=== PATIENT | male | born 1980 | race Caucasian/White ===

== ENCOUNTER → 2020-01-15 | Outpatient (CLI) | payer OTHER ==
[2020-01-15 16:17] LABS: BASO # 0.1 x10^3/uL (0.0-0.2); BASO % 1 % (0-3); EOS # 0.2 x10^3/uL (0.0-0.7); EOS % 2 % (0-3); HEMATOCRIT 42.9 % (39.0-53.0); HEMOGLOBIN 14.7 g/dL (13.0-17.5); LYMPH # 1.6 x10^3/uL (1.0-4.8); LYMPH % 23 % (24-48); MEAN CORPUSCULAR HEMOGLOBIN 32 pg (25-35); MEAN CORPUSCULAR HGB CONC 34 g/dL (31-37); MEAN CORPUSCULAR VOLUME 93 fL (79-100); MONO # 0.8 x10^3/uL (0.0-1.1); MONO % 11 % (0-9); NEUT # 4.3 x10^3/uL (1.8-7.7); NEUT % 63 % (31-73); PLATELET COUNT 241 x10^3/uL (140-400); RED BLOOD COUNT 4.63 x10^6/uL (4.30-5.70); RED CELL DISTRIBUTION WIDTH 13.2 % (11.5-14.5); WHITE BLOOD COUNT 6.9 x10^3/uL (4.0-11.0)
--- NOTE | 2020-01-15 16:19 | EKG ---
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
[2020-01-15 16:34] LABS: ALBUMIN 4.4 g/dL (3.4-5.0); C-REACTIVE PROTEIN 1.3 mg/L (0-3.3); CALCIUM 9.8 mg/dL (8.5-10.1); CREATININE 0.9 mg/dL (0.7-1.3); POTASSIUM 4.1 mmol/L (3.5-5.1)
[2020-01-15 16:46] LABS: PROTHROMBIN TIME PATIENT 12.3 SEC (11.7-14.0)
--- NOTE | 2020-01-15 16:47 | RAD ---
AP and Lateral Views of the Chest 01/15/2020 4:31 PM Indication: Reason: pre surgical / Spl. Instructions: / History: Comparison: None Findings: There is no focal consolidation or infiltrate identified. The cardiomediastinal silhouette is within normal limits. There is no evidence of pneumothorax or pleural effusion. No acute osseous abnormalities are identified. Impression: No evidence of acute cardiopulmonary process. Electronically signed by: Jose Angel Couch MD (01/15/2020 4:43 PM) [id number]
[2020-01-16 01:08] LABS: HEMOGLOBIN A1C 5.3 % (4.8-5.6)
== END ==
LOC: SURGPAT 15:26
PROVIDERS: ATTEND Orthopaedic Surgery
DX: Z01.812 Encounter for preprocedural laboratory examination (principal); M16.0 Bilateral primary osteoarthritis of hip; Z96.641 Presence of right artificial hip joint
CPT/HCPCS: 36415; 71046; 80048; 82040; 82306; 83036; 85025; 85610; 85730; 86140; 87641; 93005

== ENCOUNTER → 2020-02-01 | Outpatient (CLI) | payer OTHER | LOC: LAB 11:13 | PROVIDERS: ATTEND Orthopaedic Surgery | DX: Z01.812 Encounter for preprocedural laboratory examination (principal); Z20.828 Contact with and (suspected) exposure to other viral communicable diseases | CPT/HCPCS: U0003 ==

== ENCOUNTER 2020-02-03 20:46 | Emergency (ER) | payer OTHER ==
[~2020-02-03] VITALS: Ht 177.8 cm; Wt 86.0 kg
[2020-02-03] MEDS ORDERED: IV NORMAL SALINE 1000ML BAG 1,000 ML IV ONE (21:15)
[2020-02-03] MEDS ORDERED: NITROGLYCERIN SUBLINGUAL 0.4 MG BOTTLE OF 25. SL PRN (21:15)
[2020-02-03] MEDS ORDERED: ASPIRIN 325 MG TABLET PO ONE (21:15)
[2020-02-03] MEDS ORDERED: MORPHINE SULFATE 4 MG/ML VIAL. IV/SQ PRN (21:15)
--- NOTE | 2020-02-03 21:32 | RAD ---
Exam: Chest one view INDICATION: Chest pain TECHNIQUE: Frontal view of the chest Comparisons: 01/15/2020 FINDINGS: The cardiomediastinal silhouette and pulmonary vessels are within normal limits. The lung and pleural spaces are clear. IMPRESSION: No acute cardiopulmonary process. Electronically signed by: Brandon Delatorre MD (02/03/2020 9:30 PM) ELEAZAR
[2020-02-03 21:40] LABS: BASO % 1 % (0-3); EOS # 0.1 x10^3/uL (0.0-0.7); EOS % 2 % (0-3); HEMATOCRIT 41.8 % (39.0-53.0); HEMOGLOBIN 14.1 g/dL (13.0-17.5); LYMPH # 1.3 x10^3/uL (1.0-4.8); LYMPH % 21 % (24-48); MEAN CORPUSCULAR HEMOGLOBIN 31 pg (25-35); MEAN CORPUSCULAR HGB CONC 34 g/dL (31-37); MEAN CORPUSCULAR VOLUME 92 fL (79-100); MONO # 0.6 x10^3/uL (0.0-1.1); MONO % 10 % (0-9); NEUT # 4.3 x10^3/uL (1.8-7.7); NEUT % 67 % (31-73); PLATELET COUNT 229 x10^3/uL (140-400); RED BLOOD COUNT 4.55 x10^6/uL (4.30-5.70); RED CELL DISTRIBUTION WIDTH 13.1 % (11.5-14.5); WHITE BLOOD COUNT 6.5 x10^3/uL (4.0-11.0)
[2020-02-03 21:47] LABS: CREATININE 0.9 mg/dL (0.7-1.3); POTASSIUM 3.8 mmol/L (3.5-5.1)
[2020-02-03 22:00] LABS: ALBUMIN 4.2 g/dL (3.4-5.0); ALBUMIN/GLOBULIN RATIO 1.2 (1.0-1.7); MAGNESIUM 2.4 mg/dL (1.8-2.4); TOTAL BILIRUBIN 0.5 mg/dL (0.2-1.0); TOTAL PROTEIN 7.7 g/dL (6.4-8.2)
--- NOTE | 2020-02-03 22:09 | PHYS DOC ---
Past Medical History Past Medical History: Other Additional Past Medical Histor: ARTHRITIS IN HIS HIP Past Surgical History: No Surgical History Smoking Status: Never Smoker Alcohol Use: Occasionally General Adult EDM: Chief Complaint: CHEST PAIN-CARDIAC NATURE HPI: HPI: Patient is a 39 year old male with no significant medical history who presents to the ED today complaining of 4 out of 10 left sided chest pain that has been going on and off since yesterday. Patient denies any pain right now in the ED. Patient denies anything specifically exacerbating the pain but states laying on his back relieves the pain. He states he has not taken anything specifically for his symptoms. He states he is supposed to have left hip replacement on Tuesday and has been anxious about this. Review of Systems: Review of Systems: Constitutional: Denies fever or chills. [] Eyes: Denies change in visual acuity. [] HENT: Denies nasal congestion or sore throat. [] Respiratory: Denies cough or shortness of breath. [] Cardiovascular: Reports left-sided chest pain GI: Denies abdominal pain, nausea, vomiting, bloody stools or diarrhea. [] : Denies dysuria. [] Musculoskeletal: Denies back pain or joint pain. [] Integument: Denies rash. [] Neurologic: Denies headache, focal weakness or sensory changes. [] Psychiatric: Denies depression or anxiety. [] Heart Score: HEART Score for Chest Pain: HEART Score for Chest Pain Response (Comments) Value History Slighlty/Non-Suspicious 0 ECG Normal 0 Age < 45 0 Risk Factors No Risk Factors 0 Troponin < Normal Limit 0 Total 0 Risk Factors: Risk Factors: DM, Current or recent (<one month) smoker, HTN, HLP, family history of CAD, obesity. Risk Scores: Score 0 - 3: 2.5% MACE over next 6 weeks - Discharge Home Score 4 - 6: 20.3% MACE over next 6 weeks - Admit for Clinical Observation Score 7 - 10: 72.7% MACE over next 6 weeks - Early Invasive Strategies Current Medications: Current Medications Medications (Trade) Dose Ordered Sig/Rafael Start Time Stop Time Status Last Admin Dose Admin Aspirin (Kavya Aspirin) 325 mg 1X ONCE 02/03/20 21:15 02/03/20 21:16 DC 02/03/20 21:19 325 MG Morphine Sulfate (Morphine Sulfate) 4 mg PRN Q15MIN PRN 02/03/20 21:15 02/04/20 21:14 02/03/20 21:26 4 MG Nitroglycerin (Nitrostat) 0.4 mg PRN Q5MIN PRN 02/03/20 21:15 02/04/20 21:14 02/03/20 21:19 0.4 MG Sodium Chloride 1,000 ml @ 1,000 mls/hr 1X ONCE 02/03/20 21:15 02/03/20 22:14 02/03/20 21:26 1,000 MLS/HR Allergies: Allergies: Allergies Coded Allergies Type Severity Reaction Last Updated Verified I S O L A T I O N *CONTACT* Allergy Unknown 01/18/20 Yes No Known Medication Allergies Allergy Unknown 01/18/20 Yes Physical Exam: PE: Constitutional: Well developed, well nourished, no acute distress, non-toxic appearance. [] HENT: Normocephalic, atraumatic, bilateral external ears normal, oropharynx moist, no oral exudates, nose normal. [] Eyes: PERRLA, EOMI, conjunctiva normal, no discharge. [] Neck: Normal range of motion, no tenderness, supple, no stridor. [] Cardiovascular:Heart rate regular rhythm, no murmur [] Lungs & Thorax: Bilateral breath sounds clear to auscultation [] Abdomen: Bowel sounds normal, soft, no tenderness, no masses, no pulsatile masses. [] Skin: Warm, dry, no erythema, no rash. [] Back: No tenderness, no CVA tenderness. [] Extremities: No tenderness, no cyanosis, no clubbing, ROM intact, no edema. [] Neurologic: Alert and oriented X 3, normal motor function, normal sensory function, no focal deficits noted. [] Psychologic: Affect normal, judgement normal, mood normal. [] Current Patient Data: Labs: Laboratory Tests Test 02/03/20 21:25 White Blood Count 6.5 x10^3/uL (4.0-11.0) Red Blood Count 4.55 x10^6/uL (4.30-5.70) Hemoglobin 14.1 g/dL (13.0-17.5) Hematocrit 41.8 % (39.0-53.0) Mean Corpuscular Volume 92 fL (79-100) Mean Corpuscular Hemoglobin 31 pg (25-35) Mean Corpuscular Hemoglobin Concent 34 g/dL (31-37) Red Cell Distribution Width 13.1 % (11.5-14.5) Platelet Count 229 x10^3/uL (140-400) Neutrophils (%) (Auto) 67 % (31-73) Lymphocytes (%) (Auto) 21 % (24-48) L Monocytes (%) (Auto) 10 % (0-9) H Eosinophils (%) (Auto) 2 % (0-3) Basophils (%) (Auto) 1 % (0-3) Neutrophils # (Auto) 4.3 x10^3/uL (1.8-7.7) Lymphocytes # (Auto) 1.3 x10^3/uL (1.0-4.8) Monocytes # (Auto) 0.6 x10^3/uL (0.0-1.1) Eosinophils # (Auto) 0.1 x10^3/uL (0.0-0.7) Basophils # (Auto) 0.0 x10^3/uL (0.0-0.2) Sodium Level 140 mmol/L (136-145) Potassium Level 3.8 mmol/L (3.5-5.1) Chloride Level 100 mmol/L (98-107) Carbon Dioxide Level 25 mmol/L (21-32) Anion Gap 15 (6-14) H Blood Urea Nitrogen 10 mg/dL (8-26) Creatinine 0.9 mg/dL (0.7-1.3) Estimated GFR (Cockcroft-Gault) 95.0 BUN/Creatinine Ratio 11 (6-20) Glucose Level 92 mg/dL (70-99) Calcium Level 9.0 mg/dL (8.5-10.1) Magnesium Level 2.4 mg/dL (1.8-2.4) Total Bilirubin 0.5 mg/dL (0.2-1.0) Aspartate Amino Transferase (AST) 71 U/L (15-37) H Alanine Aminotransferase (ALT) 120 U/L (16-63) H Alkaline Phosphatase 84 U/L (46-116) Troponin I Quantitative < 0.017 ng/mL (0.000-0.055) Total Protein 7.7 g/dL (6.4-8.2) Albumin 4.2 g/dL (3.4-5.0) Albumin/Globulin Ratio 1.2 (1.0-1.7) Laboratory Tests 02/03/20 21:25 Laboratory Tests 02/03/20 21:25 Vital Signs: Vital Signs Date Time Temp Pulse Resp B/P (MAP) Pulse Ox O2 Delivery O2 Flow Rate FiO2 02/03/20 21:26 20 96 Room Air 02/03/20 21:19 94 137/88 02/03/20 20:50 98.4 98.4 EKG: EK interpreted by Dr. Ferguson sinus rhythm heart rate 91 no STEMI [] Radiology/Procedures: Radiology/Procedures: []PROCEDURE: PORTABLE CHEST 1V Exam: Chest one view INDICATION: Chest pain TECHNIQUE: Frontal view of the chest Comparisons: 01/15/2020 FINDINGS: The cardiomediastinal silhouette and pulmonary vessels are within normal limits. The lung and pleural spaces are clear. IMPRESSION: No acute cardiopulmonary process. Electronically signed by: Brandon Li MD (02/03/2020 9:30 PM) [facility] DICTATED and SIGNED BY: BRANDON LI MD DATE: 02/03/207764CIZ7 0 Course & Med Decision Making: Course & Med Decision Making Pertinent Labs and Imaging studies reviewed. (See chart for details) This is a 39-year-old male patient presenting to the ED today complaining of left-sided chest pain on and off since yesterday. No pain in the ED right now. Patient reports being anxious about left hip replacement that he is supposed to be done on Tuesday. Vitals are stable. EKG is negative, heart score is 0. CBC, CMP with no acute findings, D dimer is normal Chest x-ray is negative. Troponin is normal. Patient was discharged to home. Follow-up with cardiology as well as PCP in the course of this week. Provided return precautions and discharged in stable cond ition. [place] Disclaimer: Juliette Disclaimer: This electronic medical record was generated, in whole or in part, using a voice recognition dictation system. Departure Departure Impression: Primary Impression: Chest pain Qualified Codes: R07.9 - Chest pain, unspecified Disposition: 01 DC HOME SELF CARE/HOMELESS Condition: STABLE Referrals: UNKNOWN PCP NAME (PCP) GERONIMO RODRIGUEZ MD Follow-up in the course of this week Patient Instructions: Chest Pain (Nonspecific)-Brief Additional Instructions: You were evaluated in the emergency room for chest pain, your cardiac work-up is negative. Please follow-up with your primary care doctor as well as a cardio logist provided in the course of this week. You can take ucdu-naz-vogbfhv pain relievers specifically aspirin as needed for pain. Come back to the ED at any point symptoms worsen. KENISHA CARDOZO DIRECTOR PHARMACEUTICAL Feb 03, 2020 22:09
[2020-02-03 22:35] VITALS: BP 125/79
--- NOTE | 2020-02-04 14:59 | EKG ---
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
== END 2020-02-03 22:56 | disposition home or self-care (01) ==
LOC: ER 20:46
DX: R07.89 Other chest pain (principal); M19.90 Unspecified osteoarthritis, unspecified site; Z88.8 Allergy status to other drugs, medicaments and biological substances
CPT/HCPCS: 71045; 80053; 83735; 83880; 84443; 84484; 85025; 85379; 93005; 96361; 96374; 99285; J2270; J7030

== ENCOUNTER → 2020-04-25 | Outpatient (CLI) | payer OTHER ==
[2020-04-25 14:41] LABS: BASO % 1 % (0-3); EOS # 0.2 x10^3/uL (0.0-0.7); EOS % 2 % (0-3); HEMATOCRIT 42.1 % (39.0-53.0); HEMOGLOBIN 14.4 g/dL (13.0-17.5); LYMPH # 1.5 x10^3/uL (1.0-4.8); LYMPH % 21 % (24-48); MEAN CORPUSCULAR HEMOGLOBIN 31 pg (25-35); MEAN CORPUSCULAR HGB CONC 34 g/dL (31-37); MEAN CORPUSCULAR VOLUME 92 fL (79-100); MONO # 0.5 x10^3/uL (0.0-1.1); MONO % 8 % (0-9); NEUT # 4.7 x10^3/uL (1.8-7.7); NEUT % 68 % (31-73); PLATELET COUNT 213 x10^3/uL (140-400); RED BLOOD COUNT 4.59 x10^6/uL (4.30-5.70); RED CELL DISTRIBUTION WIDTH 12.6 % (11.5-14.5); WHITE BLOOD COUNT 6.9 x10^3/uL (4.0-11.0)
[2020-04-25 14:51] LABS: ALBUMIN 4.2 g/dL (3.4-5.0); ANION GAP 9 (6-14); BLOOD UREA NITROGEN 7 mg/dL (8-26); C-REACTIVE PROTEIN < 0.5 mg/L (0-3.3); CALCIUM 8.7 mg/dL (8.5-10.1); CARBON DIOXIDE 29 mmol/L (21-32); CHLORIDE 103 mmol/L (98-107); CREATININE 1.1 mg/dL (0.7-1.3); GFR 74.9; GLUCOSE 93 mg/dL (70-99); POTASSIUM 4.2 mmol/L (3.5-5.1); SODIUM 141 mmol/L (136-145)
[2020-04-25 14:55] LABS: PROTHROMBIN TIME PATIENT 12.5 SEC (11.7-14.0)
== END ==
LOC: EDSTATUS 13:30 → SURGPAT 13:40
PROVIDERS: ATTEND Orthopaedic Surgery
DX: Z01.818 Encounter for other preprocedural examination (principal); M16.11 Unilateral primary osteoarthritis, right hip
CPT/HCPCS: 36415; 80048; 82040; 82306; 85025; 85610; 85730; 86140; 87641

== ENCOUNTER → 2020-05-02 | Outpatient (CLI) | payer OTHER ==
[~2020-05-02] MED LIST: BACI1PAC4 NAS; MELO7.5T29 PO; WARF1TAB69 PO
== END ==
LOC: LAB 12:58
PROVIDERS: ATTEND Orthopaedic Surgery
DX: Z01.812 Encounter for preprocedural laboratory examination (principal); M16.11 Unilateral primary osteoarthritis, right hip; Z20.822 Contact with and (suspected) exposure to COVID-19
CPT/HCPCS: U0003

== ENCOUNTER 2020-05-06 07:55 | Observation (INO) | payer OTHER ==
[~2020-05-06] VITALS: Ht 167.6 cm; Wt 76.2 kg
[~2020-05-06 07:55] MED LIST changes: -BACI1PAC4 NAS; +GABAPENTIN 300 MG CAPSULE. PO PRN; +HYDROmorphone 2 MG/ML VIAL IVP PRN; +IV RINGERS,LACTATED 1000ML 1,000 ML IV SCH; -MELO7.5T29 PO; +MELOXICAM 7.5 MG TABLET PO PRN; +MORPHINE SULFATE 2 MG/ML VIAL. IVP PRN; +MORPHINE SULFATE 5 MG, KETOROLAC 30MG VIAL 30 MG, ROPIVacaine 0.5% PF 60 ML, EPINEPHrin... INT ART ONE; +PROCHLORPERAZINE 10 MG/2 ML VIAL. IVP PRN; +TRANEXAMIC ACID 1,000 MG in IV NS 50ML -- 1ST BAG INJ ONE; +VANCOMYCIN 1GM IVPB FOR OMNI 250 ML IV PRN; -WARF1TAB69 PO; +fentaNYL PF VIAL 100 MCG/2 ML VIAL IVP PRN
[2020-05-06] MEDS ORDERED: TRANEXAMIC ACID 1,000 MG in IV NS 50ML -- 2ND BAG INJ ONE (08:00)
[2020-05-06] MEDS ORDERED: MELO7.5T29 PO (08:07)
[2020-05-06] MEDS ORDERED: WARF1TAB69 PO (08:07)
[2020-05-06] MEDS ORDERED: LIDOCAINE 2% PF 5 ML VIAL. ONE (08:13)
[2020-05-06] MEDS ORDERED: DEXAMETHASONE SOD PHOS 4 MG/ML VIAL ONE (08:13)
[2020-05-06] MEDS ORDERED: PROPOFOL 10 MG/ML (20ML) VIAL. IV ONE (08:13)
[2020-05-06] MEDS ORDERED: ONDANSETRON PF 4 MG/2 ML VIAL. ONE (08:13)
[2020-05-06] MEDS ORDERED: ACETAMINOPHEN 500 MG TABLET PO ONE ×2 (08:16→08:30)
[2020-05-06] MEDS ORDERED: CALCIUM CARBONATE 500 MG TAB.CHEW PO PRN (08:45)
[2020-05-06] MEDS ORDERED: diphenhydrAMINE 50 MG/ML VIAL IVP PRN (08:45)
[2020-05-06] MEDS ORDERED: fentaNYL PF VIAL 100 MCG/2 ML VIAL IVP PRN (08:45)
[2020-05-06] MEDS ORDERED: DEXTROSE 50% 25 GM / 50ML DISP.SYRIN. IV PRN (08:45)
[2020-05-06] MEDS ORDERED: 0.9 % SODIUM CHLORIDE 10 ML DISP.SYRIN. IV PRN (08:45)
[2020-05-06] MEDS: IV NORMAL SALINE 1000ML BAG 1,000 ML IV SCH ×2 (08:45→18:17)
[2020-05-06] MEDS ORDERED: PROCHLORPERAZINE 5 MG TABLET. PO PRN (08:45)
[2020-05-06 08:49] LABS: BASO % 1 % (0-3); EOS # 0.2 x10^3/uL (0.0-0.7); EOS % 3 % (0-3); HEMATOCRIT 46.5 % (39.0-53.0); HEMOGLOBIN 15.7 g/dL (13.0-17.5); LYMPH % 29 % (24-48); MEAN CORPUSCULAR HEMOGLOBIN 31 pg (25-35); MEAN CORPUSCULAR HGB CONC 34 g/dL (31-37); MEAN CORPUSCULAR VOLUME 92 fL (79-100); MONO # 0.7 x10^3/uL (0.0-1.1); MONO % 11 % (0-9); NEUT # 3.9 x10^3/uL (1.8-7.7); NEUT % 57 % (31-73); PLATELET COUNT 227 x10^3/uL (140-400); RED BLOOD COUNT 5.04 x10^6/uL (4.30-5.70); RED CELL DISTRIBUTION WIDTH 12.8 % (11.5-14.5); WHITE BLOOD COUNT 6.8 x10^3/uL (4.0-11.0)
[2020-05-06 08:58] LABS: PROTHROMBIN TIME PATIENT 12.9 SEC (11.7-14.0)
[2020-05-06] MEDS: SENNOSIDES/DOCUSATE 8.6/50MG TABLET. PO SCH (09:00)
[2020-05-06] MEDS: MULTIVITAMIN with MINERAL TABLET. PO SCH (09:00)
[2020-05-06] MEDS ORDERED: BACI1PAC4 NAS (09:04)
[2020-05-06] MEDS ORDERED: MIDAZOLAM HCL/PF 2 MG/2 ML VIAL. ONE (09:37)
[2020-05-06] MEDS ORDERED: ROCURONIUM 50 MG/5 ML VIAL. ONE ×2 (09:37→10:40)
[2020-05-06] MEDS ORDERED: fentaNYL PF VIAL 250 MCG/5 ML VIAL ONE (09:39)
[2020-05-06] MEDS ORDERED: KETAMINE HCL IN NACL, ISO-OSM 50 MG/5 ML SYRINGE ONE (10:19)
[2020-05-06] MEDS ORDERED: TRANEXAMIC ACID in NS IVPB 100 ML ONE (10:26)
[2020-05-06] MEDS ORDERED: VANCOMYCIN 1 GM VIAL. ONE (10:28)
[2020-05-06] MEDS ORDERED: HYDROmorphone 2 MG/ML VIAL ONE (10:32)
[2020-05-06] MEDS: ONDANSETRON ODT 4 MG TAB.RAPDIS. PO SCH ×2 (12:00→18:00)
[2020-05-06] MEDS: ONDANSETRON PF 4 MG/2 ML VIAL. IVP SCH ×2 (12:00→18:04)
[2020-05-06] MEDS ORDERED: NEOSTIGMINE METHYLSULFATE 5 MG/5 ML SYRINGE. ONE (12:09)
[2020-05-06] MEDS ORDERED: GLYCOPYRROLATE 1 MG/5 ML VIAL. ONE (12:09)
[2020-05-06] MEDS ORDERED: fentaNYL PF VIAL 100 MCG/2 ML VIAL ONE (13:02)
[2020-05-06] MEDS: fentaNYL PF VIAL 100 MCG/2 ML VIAL IVP PRN ×2 (13:06→13:15)
--- NOTE | 2020-05-06 13:35 | NUR ---
Arrived to unit by bed from PACU. Drowsy but awakens when spoken to. Dressing, FRANK, is d/i. Wiggles toes and pedal pulses + bilaterally. IVF's intact and infusing. JF's and SCD's on bilaterally. Side rails up x's 2 with call light in reach. at bedside. Cont. monitor.
[2020-05-06 15:00] VITALS: BP 124/82
[2020-05-06] MEDS: MORPHINE SULFATE 2 MG/ML VIAL. IVP PRN ×2 (15:14→19:36)
[2020-05-06] MEDS ORDERED: WARFARIN 7.5 MG TABLET. PO ONE (16:00)
--- NOTE | 2020-05-06 16:07 | PDOC4 ---
Operative Note Operative Note Date of surgery: 05/06/2020 Preoperative diagnosis: Degenerative joint disease right hip Postoperative diagnosis: Same Operative procedure: Right total hip arthroplasty with anterior approach Surgeon Toro Junior Oracle Dba: Davion gee Anesthesia: General Estimated blood loss: 250 cc Complications: None Drains: None Operative indications: Please see my orthopedic clinic note and dictated history and physical for detailed operative indications and note that we covered risks benefits postoperative course of the procedure. All his questions were answered and he wishes to proceed with surgical evaluation and treatment having given informed consent Operative text: Patient was identified procedure verified patient placed in the supine position on the [place] fracture table after adequate amounts of general anesthesia were administered. All bony prominences were well-padded and right hip was prepped and draped in the standard sterile fashion. After timeout was performed patient procedure identified and verified an incision was made just distal to the anterior superior iliac spine running along the tensor fascia shankar for a distance of about 4 inches. Fascia was incised tensor fascia shankar was taken laterally and circumflex vessels were located and coagulated and the anterior capsule was exposed with the rectus femoris gently retracted medially along with the underlying fascia that was dissected free. Capsule was split in a T-shaped incision and preserved and further superior release was carried out with the hip in external rotation. Hip was returned to 40 degrees external rotation and a napkin ring cut was made with an [employer] [place] broach for reference napkin ring was removed and femoral head was removed and sized. Reaming was carried out from a size 53 to a size 55 with a size 56 cluster hole cup placed in proper version and alignment under fluoroscopic guidance and achieved a very solid scratch fit and therefore no screw fixation was applied. A 36 mm vitamin E liner was impacted into place. Femur was brought into maximum external rotation extension and adduction and release was carried out at the 11 o'clock position to free up the femur and retractors were placed medially and above the greater trochanter for maximum femoral exposure box osteotome was used along with the rattail rasp and successive size broaching up to a size 3 which provided excellent stability and fit within the canal. Calcar reaming was carried out and trial fitting with a +0 36 mm head with a high offset neck to reproduce leg length and offset appropriately. This was verified under fluoro scopic guidance. Trial components were removed and a size 3 high offset collared Avenir stem was impacted into place with a +0 ceramic 36 mm head. Excellent stability and range of motion were noted and leg length reproduced according to measurements from the contralateral side. Thorough irrigation carried out with dilute Betadine solution and then washed further with normal saline solution and pulse lavage. Intra-articular mixture was injected subperiosteally throughout the joint capsule and subcutaneous areas. Fascia was closed with #1 PDS strata fix suture in a running fashion subcutaneous closure with buried Vicryl skin closure with subcuticular Monocryl and a aaron dressing was applied. Patient was returned to recovery room in stable condition having tolerated the procedure well. Davion gee was present for the procedure and assisted in the patient positioning prepping draping retraction closure and dressings MARCO A MALAVE MD May 06, 2020 16:07
[2020-05-06] MEDS: FERROUS SULFATE 325 MG TABLET. PO SCH (16:28)
[2020-05-06] MEDS: oxyCODONE IR 5 MG TABLET PO PRN ×2 (16:43→23:24)
[2020-05-06] MEDS: ceFAZolin SODIUM IV Push 1 GM VIAL. IVP SCH ×2 (16:43→22:23)
[2020-05-06 19:00] VITALS: BP 112/73
[2020-05-06] MEDS: ZOLPIDEM 5 MG TABLET. PO PRN ×2 (21:14→23:24)
[2020-05-06 23:00] VITALS: BP 103/67
[2020-05-07] MEDS: MORPHINE SULFATE 2 MG/ML VIAL. IVP PRN (02:45)
[2020-05-07 03:00] VITALS: BP 102/56
--- NOTE | 2020-05-07 03:37 | NUR ---
Voided 100cc per urinal. Refused assistance to ambulate to toilet, "I don't need to go." Bladder scan shows 0cc. Encouraged pt to increase water intake. Refused to turn in bed.
[2020-05-07] MEDS: ceFAZolin SODIUM IV Push 1 GM VIAL. IVP SCH (05:04)
[2020-05-07 05:25] LABS: PROTHROMBIN TIME PATIENT 14.7 SEC (11.7-14.0)
[2020-05-07] MEDS: GABAPENTIN 100 MG CAPSULE. PO SCH ×2 (06:00→12:45)
[2020-05-07] MEDS ORDERED: MAGNESIUM HYDROXIDE 2,400 MG/30 ML ORAL.SUSP. PO PRN (06:00)
[2020-05-07] MEDS: ONDANSETRON PF 4 MG/2 ML VIAL. IVP SCH ×2 (06:00)
[2020-05-07] MEDS: ONDANSETRON ODT 4 MG TAB.RAPDIS. PO SCH ×2 (06:00)
[2020-05-07] MEDS: traMADol 50 MG TABLET PO SCH ×2 (06:09→11:16)
[2020-05-07 07:15] VITALS: BP 101/56
[2020-05-07] MEDS: MULTIVITAMIN with MINERAL TABLET. PO SCH (07:56)
[2020-05-07] MEDS: oxyCODONE IR 5 MG TABLET PO PRN ×2 (07:56→12:50)
[2020-05-07] MEDS: ACETAMINOPHEN 500 MG TABLET PO SCH ×2 (07:56→14:00)
[2020-05-07] MEDS: FERROUS SULFATE 325 MG TABLET. PO SCH (07:57)
[2020-05-07] MEDS: SENNOSIDES/DOCUSATE 8.6/50MG TABLET. PO SCH (07:57)
[2020-05-07] MEDS ORDERED: MELOXICAM 7.5 MG TABLET PO SCH (09:00)
[2020-05-07 10:05] LABS: HEMATOCRIT 33.5 % (39.0-53.0); HEMOGLOBIN 11.2 g/dL (13.0-17.5)
--- NOTE | 2020-05-07 10:28 | NUR ---
Pharmacy Warfarin Dosing Note S: Pharmacy consulted to assist with anticoagulation therapy started 05/06/20 O: BROOKS RAINES is a 40 year old M with ISABELA LABS: Last INR: 1.2 Last HGB: 11.2 Last HCT: 33.5 Last PLT: 227 Last dose of 7.5 mg given on 05/06/20 at 1644 Ongoing Drug Interactions: MOBIC A:INR of 1.2 is below desired range. Target range for this patient is: 1.6 - 2.5 P: Warfarin dose: 5 mg Today at 1600 Bridge Therapy: None Next INR due 05/08/20 AM Pharmacy anticoagulation service will continue to follow. KATH CRUZ RPH, 05/07/20 [id number]
[2020-05-07 11:00] VITALS: BP 122/66
[2020-05-07] MEDS ORDERED: ONDANSETRON ODT 4 MG TAB.RAPDIS. PO PRN (12:00)
[2020-05-07] MEDS ORDERED: ONDANSETRON PF 4 MG/2 ML VIAL. IVP PRN (12:00)
[2020-05-07] MEDS ORDERED: TRAM50TA PO (13:49)
[2020-05-07] MEDS ORDERED: OXYC5CAP PO (13:49)
--- NOTE | 2020-05-07 13:52 | DISCH ---
DISCHARGE INSTRUCTIONS Condition on Discharge Condition on Discharge: Stable Activity After Discharge Activity Instructions for Disc: Activity as tolerated, Progressive ambulation Bathing Instructions: Shower-keep dressing dry Exercise Instruction after Dis: Exercise per therapy, Progress as tolerated Driving Instructions after Dis: Do not drive Weight Bearing Status after Di: Full weight bearing Diet after Discharge Diet after Discharge: Regular Wound Incision Care Wound/Incision Care: Keep wound/cast CDI, Do not change dressing (Report if dressing is saturated, otherwise when suction quits at 1 week, cut tail of drain and tape over to maintain seal) Other wound/incision instructi: DO NOT change FRANK dressing. It remains in place till your follow up Community/Resources/Services Services at Discharge: Outpatient Therapy Contacting the DR. after DC Call your doctor for: Concerns you may have Follow-Up Follow Up With: SOURAV Mohamud May 21 at 9am. [phone] MARCO A MALAVE MD May 07, 2020 13:52
[2020-05-07 15:12] VITALS: BP 112/73
[2020-05-07] MEDS ORDERED: WARFARIN 5 MG TABLET. PO ONE (16:00)
[2020-05-07] MEDS ORDERED: BISACODYL 10 MG SUPP.RECT. PR PRN (16:00)
--- NOTE | 2020-05-07 16:27 | NUR ---
patient left the building with his around 1625. FRANK dressing CDI and working properly. Scripts given to the patient and his for pain medicine. Pharmacy sent patient home with coumadin. Discharge education completed by this nurse, therapy, and the doctor. Patient will be using a walker for mobility at home. No concerns noted at discharge. IV discontinued without complications
--- NOTE | 2020-05-08 09:11 | DS ---
DATE OF DISCHARGE: 05/07/2020 ORTHOPEDIC DISCHARGE SUMMARY PRINCIPAL DIAGNOSIS: Degenerative joint disease of right hip. PROCEDURE: Right total hip arthroplasty. DISPOSITION: Home with self-care outpatient physical therapy. INSTRUCTIONS: Weightbearing as tolerated. Avoid extremes of range of motion of the right hip. Maintain FRANK dressing when suction machine stops, cut tail of dressing and tape over to maintain seal. DISPOSITION MEDICATIONS: Include oxycodone 5 mg p.o. q. 4 hours p.r.n. severe pain, tramadol 50 mg p.o. q. 4 hours p.r.n. moderate pain. Call if dressing is saturated. If dressing maintain seal, may shower and pat dry. No soaking. FOLLOWUP: Follow up with Dr. Engel in 2 weeks postop. Call for any fever, chills, uncontrolled pain, or other concerns. BRIEF DESCRIPTION OF HOSPITAL COURSE: The patient underwent uncomplicated anterior approach right total hip arthroplasty. He progressed through physical therapy, transfers, ambulation without difficulty and was discharged home in stable condition with a walker for support. MARCO A ENGEL MD DR: CHAMP/bobby JOB#: [id number] / [id number] Danielle Gan NP
--- NOTE | 2020-05-13 09:16 | PATHOLOGY ---
[facility] Accession Number: [id number] . 01 Material submitted: . hip - RIGHT HIP BONE AND TISSUE. Modifiers: right . 01 Clinical history: . RIGHT HIP BONE AND TISSUE REASON FOR VISIT OA . 02 Diagnosis: Femoral head and separate segments of bone, anterior right total hip arthroplasty: - Degenerative arthritis. (JPM:clayton; 05/12/2020) MBR 05/12/2020 1801 Local . 02 Comment: There is no evidence of malignancy. (JPM:clayton; 05/12/2020) . 02 Electronically signed: . Maverick Villanueva MD, Pathologist NPI- [id number] . 01 Gross description: . Received in formalin labeled "Maverick Bueno, right hip bone and tissue" is a specimen consisting of a femoral head measuring 6.7 x 6.5 x 4.7 cm, a detached femoral neck measuring 5.3 x 4.5 x 2.0 cm, and multiple additional fragments of lopez-brown bone measuring in aggregate 7.8 x 7.2 x 1.5 cm. Soft tissue is not grossly identified. The femoral head displays roughening and eburnation over 90% of the surfaces. Peripheral osteophytes are present. The bone resection margins are smooth and consistent with surgical margins. Director Of Publications sections are submitted after decalcification as follows: A1 femoral head A2 femoral neck A3 additional bone fragments [place] [place]08[place] SYC/SYC 05/08/2020 1544 Local . 02 Pathologist provided ICD-10: M16.11 . 02 CPT . 769446, [id number] Specimen Comment: A courtesy copy of this report has been sent to [phone] Specimen Comment: Report sent to Performed at: 01 [facility] [address], [place] [id number] MD Ld Parra MD Phone: [phone] Performed at: 02 [facility] [address], [place] [id number] MD Maverick Villanueva MD Phone: [phone]
== END 2020-05-07 16:29 | disposition home or self-care (01) ==
LOC: SURG 07:55 → 4 NORTH 08:45
PROVIDERS: ADMIT Orthopaedic Surgery; ATTEND Orthopaedic Surgery
DX: M16.11 Unilateral primary osteoarthritis, right hip (principal); Z79.01 Long term (current) use of anticoagulants
CPT/HCPCS: 27130; 36415; 85014; 85018; 85025; 85610; 85730; 86850; 86900; 86901; 96361; 96374; 96375; 96376; 97110; 97116; 97162; 97165; 97530; 97535; G0378; G0379; J0171; J0690; J1100; J1170; J1885; J2250; J2270; J2405; J2704; J2710; J2795; J3010; J3370; J3490; J7030; 76000; 88304; 88311